=== PATIENT | female | born 1945 ===

== ENCOUNTER 2016-10-17 09:15 | Emergency (ER) | payer OTHER, BC ==
[2016-10-17 09:32] VITALS: O2SAT 99
--- NOTE | 2016-10-17 09:32 | C.PDOC ---
History Of Present Illness 71 yo female, presents s/p fall. pt slipped with her wet sneakers. stuck head, no loc. c/o of b/l elbow, hand pain, and facial pain. able to ambulate after. no abdominal, cp, n/v, lower extremity pain, sob - HPI Time Seen by Provider: 10/17/16 09:23 Chief Complaint (Nursing): Trauma Past Medical History Reviewed: Historical Data, Nursing Documentation, Vital Signs Vital Signs: Last Vital Signs Temp 97.6 F 10/17/16 11:30 Pulse 72 10/17/16 11:30 Resp 20 10/17/16 11:30 BP 156/79 H 10/17/16 11:30 Pulse Ox 99 10/17/16 11:57 - Medical History PMH: Arthritis Family History: States: No Known Family Hx - Social History Hx Alcohol Use: No Hx Substance Use: No - Immunization History Hx Influenza Vaccination: Yes Review Of Systems Except As Marked, All Systems Reviewed And Found Negative. Musculoskeletal: Positive for: Arm Pain, Other (facial pain) Physical Exam - Physical Exam Appears: Well, No Acute Distress Skin: Normal Color, Warm, Dry Head: Normacephalic, Other (mild ttp, swelling to bridge of nose) Eye(s): bilateral: Normal Inspection, PERRL, EOMI Nose: Normal Throat: Normal Neck: Normal Cardiovascular: Rhythm Regular Respiratory: Normal Breath Sounds Gastrointestinal/Abdominal: Normal Exam, Soft, No Tenderness, No Guarding, No Rebound Back: Normal Inspection, No Vertebral Tenderness ((-)c/t/l areas), Paraspinal Tenderness ((+)cerbical) Extremity: Normal ROM Extremity: Bilateral: Other ((+)eblow ttp, minimal, h/l hand, minimal ttp, swelling) ED Course And Treatment O2 Sat by Pulse Oximetry: 99 Medical Decision Making Medical Decision Making: nexus neg. r/o post trauma fx, bleed. 1200 imaging neg, pain improved. advise outpt f/u and return precautoins Disposition - Disposition Referrals: [facility] [Outside] [facility] [Outside] [place] [facility] [Outside] [facility] [place] [Outside] Disposition: HOME/ ROUTINE Disposition Time: 11:30 Condition: STABLE Additional Instructions: please follow up with your doctor/clinic. return to er with worsening symptoms or concenrs Instructions: Fall Prevention for Older Adults (GEN), Head Injury (ED), Elbow Sprain (ED), Hand Sprain (ED) Forms: [employer] (Niuean) - Clinical Impression Clinical Impression: Fall, Head injury, Wrist sprain, Elbow sprain
--- NOTE | 2016-10-17 10:58 | CT ---
PROCEDURE: CT HEAD WITHOUT CONTRAST. HISTORY: trauma COMPARISON: None available. TECHNIQUE: Axial computed tomography images were obtained through the head/brain without intravenous contrast. Radiation dose: Total exam DLP = 808.45 mGy-cm. This CT exam was performed using one or more of the following dose reduction techniques: Automated exposure control, adjustment of the mA and/or kV according to patient size, and/or use of iterative reconstruction technique. FINDINGS: HEMORRHAGE: No intracranial hemorrhage. BRAIN: No mass effect or edema. Dense intracranial atherosclerosis. The jj-white matter differentiation appears intact. Please note that MRI with diffusion imaging is more sensitive in the detection of acute ischemic event. VENTRICLES: No hydrocephalus. CALVARIUM: Unremarkable. PARANASAL SINUSES: Unremarkable as visualized. No significant inflammatory changes. MASTOID AIR CELLS: Unremarkable as visualized. No inflammatory changes. OTHER FINDINGS: None. IMPRESSION: No acute intracranial pathology identified.
--- NOTE | 2016-10-17 11:14 | CT ---
CT maxillofacial bones without IV contrast Indication: Fall Comparison: None available. Technique: Axial computed tomography images were obtained of the maxillofacial bones without the use of intravenous contrast. Coronal and sagittal reformatted images were generated and reviewed. This CT exam was performed using 1 or more of the falling dose reduction techniques: Automated exposure control, adjustment of the MAA and/or kV according to patient size, and/or use of iterative reconstruction technique. Radiation dose: Total exam DLP = 780.02 mGy-cm. Findings: Streak artifact from dental hardware. Dense intracranial atherosclerotic calcifications. The facial bones appear intact without acute displaced fracture. The orbits appear unremarkable. The temporomandibular joints are located. The mastoid air cells appear clear. The paranasal sinuses appear clear without air-fluid levels. The visualized brain appears unremarkable. Impression: No acute findings identified. See above.
--- NOTE | 2016-10-17 11:31 | RAD ---
PROCEDURE: Bilateral Elbow Radiographs. HISTORY: fall COMPARISON: None. FINDINGS: BONES: No fracture identified bilaterally and there is no suspicious lytic or blastic change identified either. JOINTS: No subluxation or dislocation of the bilateral elbow joints is encountered. No definite pattern suggest joint effusions bilaterally. Cortical margins appear unremarkable throughout bilaterally. JOINT EFFUSION: Right Elbow: None. Left Elbow: None. SOFT TISSUES: Right Elbow: Normal. Left Elbow: Normal. OTHER FINDINGS: None. IMPRESSION: Normal radiographs of the elbows. No acute findings identified bilaterally.
--- NOTE | 2016-10-17 11:33 | RAD ---
PROCEDURE: Bilateral hand radiographs. HISTORY: fall COMPARISON: None. FINDINGS: BONES: No fracture or dislocation. No suspicious lytic or blastic change bilaterally. JOINTS: The distal interphalangeal joints are narrowed throughout and exhibit mild prominence of the articular cortex compatible with degenerate joint disease. Lesser similar changes affect the middle interphalangeal joints as well. SOFT TISSUES: Right Hand: Normal. Left Hand: Normal. OTHER FINDINGS: None. 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 No fracture dislocation or suspicious lytic or blastic change bilaterally.
[2016-10-17 11:37] VITALS: BP 156/79; PULSE 72; RESP 20; TEMP 97.6
== END 2016-10-17 11:53 | disposition home or self-care (01) ==
LOC: C.ER 09:15
DX: S09.90XA Unspecified injury of head, initial encounter (principal); S63.509A Unspecified sprain of unspecified wrist, initial encounter; S53.409A Unspecified sprain of unspecified elbow, initial encounter; W01.0XXA Fall on same level from slipping, tripping and stumbling without subsequent striking against object, initial encounter